=== PATIENT | female | born 1975 | race Caucasian/White ===

== ENCOUNTER 2020-12-22 18:23 | Emergency (ER) | payer BC, SELFPAY ==
[2020-12-22] MEDS ORDERED: Rabies Vaccine Human 2.5 UNITS VIAL ONE (19:21)
== END 2020-12-22 20:13 | disposition home or self-care (01) ==
LOC: NAV ERS 18:23
DX: Z20.3 Contact with and (suspected) exposure to rabies (principal); Z23 Encounter for immunization; Z79.899 Other long term (current) drug therapy
CPT/HCPCS: 90376; 90471; 90675

== ENCOUNTER 2020-12-27 20:28 | Emergency (ER) | payer SELFPAY ==
[2020-12-27] MEDS ORDERED: Rabies Vaccine Human 2.5 UNITS VIAL ONE (21:23)
== END 2020-12-27 22:05 | disposition home or self-care (01) ==
LOC: NAV ERS 20:28
DX: Z20.3 Contact with and (suspected) exposure to rabies (principal)
CPT/HCPCS: 90675; 99283